=== PATIENT | female | born 1970 | race Caucasian/White ===

== ENCOUNTER 2016-11-23 18:07 | Emergency (ER) | payer OTHER ==
[~2016-11-23] VITALS: Ht 170.2 cm; Wt 70.3 kg
[2016-11-23 19:26] LABS: BASOPHILS % (AUTO) 0 % (0-10); EOSINOPHILS # (AUTO) 0.1 10^3/uL (0.0-0.3); EOSINOPHILS % (AUTO) 2 % (0-10); LYMPHOCYTES # (AUTO) 2.2 X 10^3 (1.0-4.0); LYMPHOCYTES % (AUTO) 32 % (12-44); MEAN CORPUSCULAR HEMOGLOBIN 31 PG (25-34); MEAN CORPUSCULAR HGB CONC 34 G/DL (32-36); MEAN CORPUSCULAR VOLUME 92 FL (80-99); MONOCYTES # (AUTO) 0.6 X 10^3 (0.0-1.0); MONOCYTES % (AUTO) 9 % (0-12); NEUTROPHILS % (AUTO) 57 % (42-75); PLATELET COUNT 276 10^3/uL (130-400); RED BLOOD COUNT 4.43 10^6/uL (4.35-5.85); RED CELL DISTRIBUTION WIDTH 12.8 % (10.0-14.5)
[2016-11-23 19:47] LABS: ALANINE AMINOTRANSFERASE 20 U/L (0-55); ALBUMIN 4.1 GM/DL (3.2-4.5); ANION GAP 8 MMOL/L (5-14); ASPARTATE AMINO TRANSFERASE 19 U/L (5-34); BILIRUBIN,TOTAL 0.6 MG/DL (0.1-1.0); BLOOD UREA NITROGEN 9 MG/DL (7-18); BUN/CREATININE RATIO 12; CALCIUM 9.1 MG/DL (8.5-10.1); CARBON DIOXIDE 24 MMOL/L (21-32); CHLORIDE 106 MMOL/L (98-107); CREATININE SERUM 0.74 MG/DL (0.60-1.30); GFR ESTIMATED > 60; GLUCOSE 89 MG/DL (70-105); MAGNESIUM 2.3 MG/DL (1.8-2.4); POTASSIUM 3.6 MMOL/L (3.6-5.0); SODIUM 138 MMOL/L (135-145); TOTAL PROTEIN 7.6 GM/DL (6.4-8.2)
--- NOTE | 2016-11-23 19:58 | Diagnostic Imaging Report ---
CLINICAL INDICATION: Patient complains of premature ventricular contractions for the past four years. EXAM: Chest x-ray, PA and lateral views. COMPARISONS: None. FINDINGS: Lungs/pleura: Lungs are clear. There is no pneumothorax. There is no pleural effusion. Mediastinum: Unremarkable. Pulmonary vasculature: Unremarkable. Heart: Unremarkable. Bones/extrathoracic soft tissue: Unremarkable. IMPRESSION: Unremarkable chest x-ray exam with no radiographic evidence of acute cardiopulmonary process. Dictated by: Dictated on workstation # [id number]
[2016-11-23 20:06] LABS: THYROID STIMULATING HORMONE 2.58 UIU/ML (0.35-4.94); TROPONIN I < 0.30 NG/ML (<0.30)
--- NOTE | 2016-11-23 20:36 | ED Cardiac General ---
History of Present Illness General Chief Complaint: Cardiac/General Problems Stated Complaint: PBC Nursing Triage Note: c/o intermittant pvc's x2 weeks History of Present Illness Time seen by provider: 19:00 Initial Comments Patient reports over the last 2 weeks she's been having palpitations. She was evaluated in [place] where she works and seen at a clinic. She wore a Holter monitor for the last 24 hours, it was turned to the hospital earlier today. She has had no report on the results from that. She reports that the palpitations are intermittent she will go many hours without having any and then have them for 5-10 minutes before they resolve. She denies any added stress or other life circumstances that may be the cause. She does have a strong family history of cardiovascular disease including a father that had a fatal IL in the early 50s. Timing/Duration: other Severity: mild Location: substernal (palpitations) Activities at Onset: other (very) Prior CP/Workup: no prior chest pain, no prior cardiac workup NTG SL QUALITY CONTROL SCIENTIST: No ASA po QUALITY CONTROL SCIENTIST: Yes (she began taking aspirin 81 mg 1 by mouth daily this week.) Associated Systoms: Denies Symptoms Allergies and Home Medications Allergies Coded Allergies: No Known Drug Allergies (Unverified , 11/23/16) Home Medications No Active Prescriptions or Reported Meds Review of Systems Constitutional: no symptoms reported, see HPI Cardiovascular: See HPI, Irregular Heart Rate, Palpitations All Other Systems Reviewed Negative Unless Noted: Yes Past Qanwcio-Nwzmxb-Pbtlct Hx Patient Social History Alcohol Use: Denies Use Recreational Drug Use: No Smoking Status: Never a Smoker 2nd Hand Smoke Exposure: No Recent Foreign Travel: No Contact w/Someone Who Travel: No Recent Infectious Disease Expo: No Recent Hopitalizations: No Immunizations Up To Date Tetanus Booster (TDap): Less than 5yrs PED Vaccines UTD: Yes Seasonal Allergies Seasonal Allergies: No Surgeries History of Surgeries: Yes Surgeries: Hysterectomy Respiratory History of Respiratory Disorde: No Cardiovascular History of Cardiac Disorders: No Neurological History of Neurological Disord: No Reproductive System : No CARD DEALER History: Hysterectomy Genitourinary History of Genitourinary Disor: No Gastrointestinal History of Gastrointestinal Di: No Musculoskeletal History of Musculoskeletal Dis: No Endocrine History of Endocrine Disorders: No HEENT History of HEENT Disorders: No Cancer History of Cancer: No Psychosocial History of Psychiatric Problem: No Integumentary History of Skin or Integumenta: No Blood Transfusions History of Blood Disorders: No Reviewed Nursing Assessment Reviewed/Agree w Nursing PMH: Yes Physical Exam Vital Signs Vital Sign - Last 12Hours 11/23/16 19:09 Temp 97.7 Pulse 68 Resp 23 B/P (MAP) 156/98 Pulse Ox 99 O2 Delivery Room Air Capillary Refill : Less Than 3 Seconds General Appearance: No Apparent Distress, WD/WN HEENT: PERRL/EOMI, TMs Normal, Normal ENT Inspection, Pharynx Normal Neck: Full Range of Motion, Normal Inspection, Non Tender, Supple Respiratory: Chest Non Tender, Lungs Clear, Normal Breath Sounds Cardiovascular: Regular Rate, Rhythm, No Edema, No Murmur, Normal Peripheral Pulses Gastrointestinal: Normal Bowel Sounds, No Organomegaly, No Pulsatile Mass, Non Tender, Soft Neurologic/Psychiatric: Alert, Oriented x3, No Motor/Sensory Deficits, Normal Mood/Affect Skin: Normal Color, Warm/Dry Lymphatic: No Adenopathy Progress/Results/Core Measures Results/Orders Lab Results Laboratory Tests Test 11/23/16 19:15 Range/Units White Blood Count 7.0 4.3-11.0 10^3/uL Red Blood Count 4.43 4.35-5.85 10^6/uL Hemoglobin 13.9 11.5-16.0 G/DL Hematocrit 41 35-52 % Mean Corpuscular Volume 92 80-99 FL Mean Corpuscular Hemoglobin 31 25-34 PG Mean Corpuscular Hemoglobin Concent 34 32-36 G/DL Red Cell Distribution Width 12.8 10.0-14.5 % Platelet Count 276 130-400 10^3/uL Mean Platelet Volume 10.0 7.4-10.4 FL Neutrophils (%) (Auto) 57 42-75 % Lymphocytes (%) (Auto) 32 12-44 % Monocytes (%) (Auto) 9 0-12 % Eosinophils (%) (Auto) 2 0-10 % Basophils (%) (Auto) 0 0-10 % Neutrophils # (Auto) 4.0 1.8-7.8 X 10^3 Lymphocytes # (Auto) 2.2 1.0-4.0 X 10^3 Monocytes # (Auto) 0.6 0.0-1.0 X 10^3 Eosinophils # (Auto) 0.1 0.0-0.3 10^3/uL Basophils # (Auto) 0.0 0.0-0.1 10^3/uL Sodium Level 138 135-145 MMOL/L Potassium Level 3.6 3.6-5.0 MMOL/L Chloride Level 106 98-107 MMOL/L Carbon Dioxide Level 24 21-32 MMOL/L Anion Gap 8 5-14 MMOL/L Blood Urea Nitrogen 9 7-18 MG/DL Creatinine 0.74 0.60-1.30 MG/DL Estimat Glomerular Filtration Rate > 60 BUN/Creatinine Ratio 12 Glucose Level 89 70-105 MG/DL Calcium Level 9.1 8.5-10.1 MG/DL Magnesium Level 2.3 1.8-2.4 MG/DL Total Bilirubin 0.6 0.1-1.0 MG/DL Aspartate Amino Transf (AST/SGOT) 19 5-34 U/L Alanine Aminotransferase (ALT/SGPT) 20 0-55 U/L Alkaline Phosphatase 62 40-136 U/L Troponin I < 0.30 <0.30 NG/ML Total Protein 7.6 6.4-8.2 GM/DL Albumin 4.1 3.2-4.5 GM/DL Thyroid Stimulating Hormone (TSH) 2.58 0.35-4.94 UIU/ML My Orders Orders - NADIA SANTORO Chest Pa/Lat (2 View) (11/23/16 19:38) Vital Signs/I&O Vital Sign - Last 12Hours 11/23/16 11/23/16 19:09 20:44 Temp 97.7 97.0 Pulse 68 61 Resp 23 10 B/P (MAP) 156/98 Pulse Ox 99 100 O2 Delivery Room Air Room Air Blood Pressure Mean: 117 Progress Note : Time: 19:00 Progress Note Initial evaluation completed, recommended labs, chest x-ray and EKG. Will reevaluate and continue cardiac monitoring. 1940 all studies essentially normal. The patient has had a few episodes of palpitations since admission to the emergency department, they do seem to coincide with the PVCs. 2000 discussed at length with the patient and her daughter to follow-up at the clinic with a Holter monitor was done for reevaluation and referral to cardiology. Warning signs to return to the emergency Department were reviewed with her and she verbalized understanding. ECG Initial ECG Impression Date: Nov 23, 2016 Initial ECG Impression Time: 19:38 Initial ECG Rate: 58 Initial ECG Rhythm: Normal Sinus Initial ECG Intervals CT 160, QRS D 86, QT 396, QTc 389. [place] P 52, QRS 46, T 30. Initial ECG Impression: Normal Diagnostic Imaging Diagonstic Imaging: Xray Plain Films/CT/US/NM/MRI: chest Comments NAME: JAY LEBRON [facility] REC#: [id number] PT STATUS: REG ER : 1970 PHYSICIAN: NADIA SANTORO ADMIT DATE: 11/23/16/ER Draft Date of Exam:11/23/16 CHEST PA/LAT (2 VIEW) CLINICAL INDICATION: Patient complains of premature ventricular contractions for the past four years. EXAM: Chest x-ray, PA and lateral views. COMPARISONS: None. FINDINGS: Lungs/pleura: Lungs are clear. There is no pneumothorax. There is no pleural effusion. Mediastinum: Unremarkable. Pulmonary vasculature: Unremarkable. Heart: Unremarkable. Bones/extrathoracic soft tissue: Unremarkable. IMPRESSION: Unremarkable chest x-ray exam with no radiographic evidence of acute cardiopulmonary process. Dictated on workstation # [id number] Dict: 11/23/161953 Trans: 11/23/161956 [id number] Interpreted by: NOLA CASPER MD Electronically signed by: Departure Impression Impression: Primary Impression: Palpitations Additional Impression: PVCs (premature ventricular contractions) Disposition: 01 HOME, SELF-CARE Condition: Stable Departure-Patient Inst. Decision time for Depature: 20:30 Referrals: NO,LOCAL PHYSICIAN (PCP/Family) Primary Care Physician Patient Instructions: Palpitations (DC) Add. Discharge Instructions: Continue taking aspirin one daily, 81 mg. Call [facility] tomorrow for results of your Holter monitor, as the clinic to schedule with you with cardiology. ([place] [facility] or [place]) Return to emergency department if palpitations change in nature or increase in frequency or duration, chest pain, left arm pain, numbness or tingling, or new problems. All discharge instructions reviewed with patient and/or family. Voiced understanding. Scripts No Active Prescriptions or Reported Meds Copy Copies To 1: JUDY RWIGHT MD, AMY ARNP Nov 23, 2016 20:36
[2016-11-23 20:44] VITALS: BP 135/80
== END 2016-11-23 20:44 | disposition home or self-care (01) ==
LOC: ER 18:11
DX: I49.3 Ventricular premature depolarization (principal); Z90.710 Acquired absence of both cervix and uterus; Z82.49 Family history of ischemic heart disease and other diseases of the circulatory system
CPT/HCPCS: 36415; 71020; 80053; 83735; 84443; 84484; 85025; 93005; 93041

== ENCOUNTER 2017-01-08 11:00 | Outpatient (RCR) | payer OTHER ==
[~2017-01-08 11:00] MED LIST: ASPI-586 PO; CHOL10007 PO; OMEG1000 PO
== END 2017-03-11 | disposition home or self-care (01) ==
LOC: CARD 11:00
PROVIDERS: ATTEND Internal Medicine Interventional Cardiology
DX: R00.2 Palpitations (principal); I45.9 Conduction disorder, unspecified
CPT/HCPCS: 93270

== ENCOUNTER → 2019-12-03 | Outpatient (CLI) | payer OTHER | LOC: ONC 14:57 | PROVIDERS: ATTEND Nurse Practitioner Adult Health | DX: Z13.79 Encounter for other screening for genetic and chromosomal anomalies (principal); Z80.3 Family history of malignant neoplasm of breast; Z79.899 Other long term (current) drug therapy; R00.0 Tachycardia, unspecified; R00.2 Palpitations | CPT/HCPCS: 99212 ==

== ENCOUNTER → 2020-01-05 | Outpatient (CLI) | payer OTHER ==
[2020-01-05 12:06] VITALS: BP 107/75
--- NOTE | 2020-01-05 12:06 | Cardiology Stress Test Report ---
Stress Test Report Date of Procedure/Referring: Date of Procedure: Jan 05, 2020 PCP Judy Delgado MD Admitting Physician [facility] Indications: Palpitation Baseline Heart Rate: 61 Baseline Blood Pressure: Blood Pressure Systolic: 107 Blood Pressure Diastolic: 75 Baseline EKG: Baseline EKG: normal sinus rhythm Summary/Conclusion: Summary: In summary, the patient started exercising with a baseline heart rate, blood pressure and EKG mentioned above Patient was able to exercise for a total of 5minutes on Nj protocol, METs 7 Maximum heart rate 159 Maximum blood pressure 150/86 Stress EKG, Minimal nondiagnostic changes Recovery EKG , Return to baseline Conclusion: 1. Good exercise tolerance for a total of minutes on Nj protocol, METs, achieving percent of maximum expected heart rate 2. Minimal nondiagnostic EKG changes with exercise returned to baseline during recovery 3. Multiple PVCs noted during exercise and during recovery, transient episode of ventricular trigeminy noted during recovery JUDY DELGADO MD Jan 05, 2020 12:06 pm
== END ==
LOC: CARD 09:39
PROVIDERS: ATTEND Internal Medicine Cardiovascular Disease
DX: I49.1 Atrial premature depolarization (principal); I49.3 Ventricular premature depolarization; I45.9 Conduction disorder, unspecified; Z80.3 Family history of malignant neoplasm of breast
CPT/HCPCS: 93017; 93306

== ENCOUNTER 2020-02-05 05:35 | Outpatient (RCR) | payer OTHER ==
[~2020-02-05] VITALS: Ht 170.2 cm; Wt 74.1 kg
== END 2020-02-05 11:08 | disposition home or self-care (01) ==
LOC: PREOP 05:35
PROVIDERS: ATTEND Surgery
DX: Z01.812 Encounter for preprocedural laboratory examination (principal); K21.9 Gastro-esophageal reflux disease without esophagitis; Z20.828 Contact with and (suspected) exposure to other viral communicable diseases
CPT/HCPCS: 87635

== ENCOUNTER 2020-02-10 08:04 | Day surgery (SDC) | payer OTHER ==
[~2020-02-10] VITALS: Ht 170.2 cm; Wt 74.1 kg
[2020-02-10] VITALS (7 sets, daily range): BP systolic 100–154; BP diastolic 64–87
[2020-02-10] MEDS ORDERED: LACTATED RINGERS 1,000 ML IV STA (08:15)
[2020-02-10] MEDS ORDERED: HURRICAINE EXT TUBE (BENZOCAINE) XX PRN (08:15)
[2020-02-10] MEDS ORDERED: PROPOFOL INJECTION 50 ML IV ONE (08:16)
[2020-02-10] MEDS ORDERED: LACTATED RINGERS 1,000 ML IV ONE (08:16)
[2020-02-10] MEDS ORDERED: MIDAZOLAM 2 MG/2 ML (VERSED) VIAL ONE (08:17)
--- NOTE | 2020-02-10 08:29 | Progress Note-Pre Operative ---
Pre-Operative Progress Note H&P Reviewed The H&P was reviewed, patient examined and no changes noted. Date Seen by Provider: Feb 10, 2020 Time Seen by Provider: 08:29 Date H&P Reviewed: Feb 10, 2020 Time H&P Reviewed: 08:29 Pre-Operative Diagnosis: gerd, screening colonoscopy IGLESIA CANO DO Feb 10, 2020 08:29
[2020-02-10] MEDS ORDERED: HURRICAINE EXT TUBE (BENZOCAINE) ONE (08:59)
--- NOTE | 2020-02-10 09:46 | Discharge Inst-Simple/Standard ---
Discharge Inst-Standard Discharge Medications New, Converted or Re-Newed RX: Transmitted to Pharmacy Patient Instructions/Follow Up Plan of Care/Instructions/FU: 3 weeks Anitha Activity as Tolerated: Yes Discharge Diet: Regular Diet IGLESIA CANO DO Feb 10, 2020 09:46
--- NOTE | 2020-02-10 09:46 | Progress Note-Post Operative ---
Post-Operative Progess Note Surgeon (s)/Tool Sharpener (s) Surgeon IGLESIA CANO DO Tool Sharpener: na Pre-Operative Diagnosis gerd, screening colonoscopy Post-Operative Diagnosis reflux esophagitis, normal colon Procedure & Operative Findings Date of Procedure 02/10/20 Procedure Performed/Findings egd c biopsies colonoscopy Anesthesia Type per marketing editor Estimated Blood Loss Estimated blood loss (mL): na Specimens/Packing Specimens Removed antrum ge IGLESIA CANO DO Feb 10, 2020 09:46
[2020-02-10] MEDS ORDERED: OMEP-401 PO (09:50)
--- NOTE | 2020-02-10 12:28 | OPERATIVE REPORT ---
DATE OF SERVICE: 02/10/2020 PREOPERATIVE DIAGNOSES: Gastroesophageal reflux disease and screening colonoscopy. POSTOPERATIVE DIAGNOSES: Reflux esophagitis, normal colon. PROCEDURE: EGD with biopsies, colonoscopy. SURGEON: Iglesia Welsh DO ANESTHESIA: Per PROTECTION AGENT. ESTIMATED BLOOD LOSS: None. COMPLICATIONS: None. INDICATIONS: The patient is a 49-year-old female needing screening colonoscopy and has reflux. She understands risks and benefits of procedure and wished to proceed with procedure. Consent was signed in the chart. DESCRIPTION OF PROCEDURE: The patient was taken to the endoscopy suite, placed in left lateral recumbent position. Timeout was performed. Scope was inserted in mouth, down the esophagus, stomach and into the duodenum without difficulty. There were no polyps, masses or ulcerations in the duodenum. Scope was slowly retracted back into the stomach where it was further insufflated. No polyps, masses or ulcerations. Biopsy of the antrum was obtained. Some minimal erythematous changes. Scope was retroflexed noting no other pathology. Scope was returned to its normal position, slowly withdrawn to distal esophagus, changes of reflux esophagitis present. Biopsy of the GE junction was obtained. Scope was then slowly retracted back noting no other pathology. The patient tolerated procedure well. Digital rectal exam was performed. No palpable polyps, masses or ulcerations. Scope was inserted in the rectum, advanced all the way to cecum with minimal difficulty. Prep was adequate. There were no polyps, mass, ulceration of the cecum, ascending, transverse, descending and sigmoid colon. Once in the rectum, scope was retroflexed noting no other pathology. Scope was returned to its normal position, slowly withdrawn until completely removed. The patient tolerated procedure well without any complications. She was taken to recovery room in stable condition. RECOMMENDATIONS: The patient will need repeat colonoscopy in 10 years unless family history of colon cancer, which then be 5 years. Any issues before that be seen at that time. The patient with reflux esophagitis, but was started on omeprazole 20 mg daily. We will follow up on biopsies. Further recommendations pending biopsy and symptoms. Job ID: [id number] DocumentID: [id number] Dictated Date: 02/10/2020 09:53:17 Community Service Technician Date: 02/10/2020 12:27:22 Dictated By: IGLESIA WELSH DO
--- NOTE | 2020-02-10 13:13 | Anesthesia-General Post-Op ---
MAC Patient Condition Mental Status/LOC: Same as Preop Cardiovascular: Satisfactory Nausea/Vomiting: Absent Respiratory: Satisfactory Pain: Controlled Complications: Absent Post Op Complications Complications None Follow Up Care/Instructions Patient Instructions None needed. Anesthesiology Discharge Order Discharge Order Patient is doing well, no complaints, stable vital signs, no apparent adverse anesthesia problems. No complications reported per nursing. GET HUTTON CRNA Feb 10, 2020 13:13
== END 2020-02-10 10:28 | disposition home or self-care (01) ==
LOC: ENDO 08:04
PROVIDERS: ATTEND Surgery
DX: Z12.11 Encounter for screening for malignant neoplasm of colon (principal); K21.00 Gastro-esophageal reflux disease with esophagitis, without bleeding; Z83.3 Family history of diabetes mellitus; Z90.710 Acquired absence of both cervix and uterus
CPT/HCPCS: 88305

== ENCOUNTER → 2020-02-26 | Outpatient (CLI) | payer OTHER ==
[~2020-02-26] MED LIST changes: +OMEP-401 PO
--- NOTE | 2020-02-26 08:39 | Diagnostic Imaging Report ---
PROCEDURE: US Gallbladder. TECHNIQUE: Multiple real-time grayscale images were obtained over the right upper quadrant in various projections. INDICATION: Epigastric pain. FINDINGS: The liver is normal in size at 15 cm. No discrete liver mass is detected. Portal vein is patent and shows normal direction of flow. Gallbladder is without stones or sludge. No wall thickening or biliary ductal dilatation is identified. Pancreas is unremarkable. Aorta is nonaneurysmal. IVC is patent. Right kidney is without calculi or hydronephrosis. There is no ascites. IMPRESSION: Unremarkable gallbladder ultrasound. Dictated by: Dictated on workstation # [id number]
== END ==
LOC: RAD 08:00
PROVIDERS: ATTEND Surgery
DX: R10.13 Epigastric pain (principal)
CPT/HCPCS: 76705

== ENCOUNTER → 2020-03-22 | Outpatient (CLI) | payer OTHER ==
--- NOTE | 2020-03-22 12:28 | Diagnostic Imaging Report ---
INDICATION: Epigastric pain. TECHNIQUE: The patient received 5.4 mCi of intravenous technetium 99M Choletec. After 60 minutes, gallbladder stimulation was performed with the patient's ingestion of the one can of Ensure with additional imaging performed. FINDINGS: There is prompt homogenous distribution of radiopharmacy throughout the liver parenchyma. Activity can be seen within the intra and extrahepatic bile ducts as well as accumulating within the gallbladder within 15 minutes time. With gallbladder stimulation, an ejection fraction of 40% is within normal limits given oral stimulation. IMPRESSION: Normal HIDA scan and unremarkable gallbladder ejection fraction. Dictated by: Dictated on workstation # [id number]
== END ==
LOC: CARD 10:00
PROVIDERS: ATTEND Surgery
DX: R10.13 Epigastric pain (principal)
CPT/HCPCS: 78227; A9537

== ENCOUNTER 2020-04-06 05:30 | Outpatient (RCR) | payer OTHER ==
[~2020-04-06] VITALS: Ht 170.2 cm; Wt 70.9 kg
[~2020-04-06 05:30] MED LIST changes: +ASCO100T6 PO; +CHOL500049 PO; +OMEG1600 PO; +ROSU20TA2 PO
== END 2020-04-06 10:58 | disposition home or self-care (01) ==
LOC: PREOP 05:30
PROVIDERS: ATTEND Surgery
DX: Z01.812 Encounter for preprocedural laboratory examination (principal); K82.8 Other specified diseases of gallbladder; Z20.822 Contact with and (suspected) exposure to COVID-19
CPT/HCPCS: 87635

== ENCOUNTER 2020-04-08 07:55 | Day surgery (SDC) | payer OTHER ==
[~2020-04-08] VITALS: Ht 170.2 cm; Wt 70.9 kg
[2020-04-08] VITALS (11 sets, daily range): BP systolic 109–138; BP diastolic 71–83
[2020-04-08] MEDS ORDERED: LIDOCAINE/EPI 1%-1:100,000 (XYLOCAINE) 50 ML ONE (07:56)
[2020-04-08] MEDS ORDERED: IOPAMIDOL 61% 30 ML (ISOVUE 300) VIAL ONE (07:56)
--- NOTE | 2020-04-08 08:06 | Progress Note-Pre Operative ---
Pre-Operative Progress Note H&P Reviewed The H&P was reviewed, patient examined and no changes noted. Date Seen by Provider: Apr 08, 2020 Time Seen by Provider: 08:06 Date H&P Reviewed: Apr 08, 2020 Time H&P Reviewed: 08:06 Pre-Operative Diagnosis: epigastric abd pain, biliary dyskinesia IGLESIA CANO DO Apr 08, 2020 08:06
[2020-04-08] MEDS ORDERED: ceFAZolin INJECTION 1,000 MG in WATER (STERILE) FOR INJECTION 10 ML IV ONE (08:15)
[2020-04-08] MEDS ORDERED: CATHETER FLUSH 10 ML SYR IV PRN (08:15)
[2020-04-08] MEDS ORDERED: LIDOCAINE PF 2% 5 ML (XYLOCAINE) VIAL ONE (08:20)
[2020-04-08] MEDS ORDERED: ROCURONIUM 10 MG/ML 5 ML SYRINGE IV ONE (08:20)
[2020-04-08] MEDS ORDERED: proPOfol 200 MG/20 ML (DIPRIVAN) VIAL IV ONE (08:20)
[2020-04-08] MEDS ORDERED: ONDANSETRON 4 MG/2 ML (SDV) Z0FRAN ONE (08:20)
[2020-04-08] MEDS ORDERED: MIDAZOLAM 2 MG/2 ML (VERSED) VIAL ONE (08:20)
[2020-04-08] MEDS ORDERED: fentaNYL INJECTION 100 MCG/2 ML AMP ONE ×2 (08:20→09:56)
[2020-04-08] MEDS ORDERED: NEOSTIGMINE 3 MG/3 ML VIAL ONE (08:21)
[2020-04-08] MEDS ORDERED: GLYCOPYRROLATE 0.2 MG/ML (ROBINUL) 2 ML VIAL ONE (08:21)
[2020-04-08] MEDS ORDERED: SEVOFLURANE (ULTANE) 15 ML INHAL SOLN ONE ×3 (08:21→10:15)
[2020-04-08] MEDS: LACTATED RINGERS 1,000 ML IV PRN ×2 (08:25→09:59)
--- NOTE | 2020-04-08 10:25 | Progress Note-Post Operative ---
Post-Operative Progess Note Surgeon (s)/Seam Checker (s) Surgeon IGLESIA CANO DO Seam Checker: Dr. Villegas to assist in retraction dissection and closure. Pre-Operative Diagnosis epigastric abd pain, biliary dyskinesia Post-Operative Diagnosis same Procedure & Operative Findings Date of Procedure 04/08/20 Procedure Performed/Findings PROCEDURE: Laparoscopic cholecystectomy with intraoperative cholangiogram. COMPLICATIONS: None. PROCEDURE: The patient was taken to the operating suite and was prepped and draped in sterile fashion. A surgical pause was performed. Just superior to the umbilicus, a 12 mm incision was made. Dissection was taken down to the fascia, which was then scored and grasped with a Stevo and the abdomen was then entered. A 0 Vicryl suture was placed in a [id number]-zx-mfdva fashion and a Grant trocar was placed and secured. Pneumoperitoneum was achieved. A 5mm trochar place in the subxyphoid and 2 in the right upper quadrant. The gallbladder was then grasped and elevated. The cystic duct, and cystic artery were then dissected out. Clip was placed on the distal portion of the cystic duct which was then partially transected. An arrow catheter was inserted into the duct. The cholangiogram was then performed. No filing defects and contrast made its way into the duodenum. Catheter removed. Clips were placed on proximal portion of the cystic duct and then the duct was then transected. Clips were placed along the proximal and distal portion of the cystic artery which was then transected. Hook cautery was used to dissect the gallbladder from the gallbladder fossa achieving hemostasis. The gallbladder was placed in an Endobag and removed through the 12 mm trocar site. The abdomen was then reinspected. Copious amounts of irrigation were used to irrigate the abdomen and there were no signs of active bleeding. Hemostasis had been achieved. The 12 mm fascial defect was then closed with 0 Vicryl suture that had been placed in a juwnos-yx-izaca fashion. The abdomen was then desufflated, the trocars were removed. The abdomen was then washed and dried. The skin was then closed using 4-0 Monocryl in a subcuticular fashion. The abdomen was washed and dried and Skin Affix was place over incisions. Patient tolerated the procedure well without any complications and was taken to the recovery room in stable condition. Anesthesia Type general Estimated Blood Loss Estimated blood loss (mL): minimal Specimens/Packing Specimens Removed gallbladder IGLESIA CANO DO Apr 08, 2020 10:25
[2020-04-08] MEDS ORDERED: ACHD5005 PO (10:26)
[2020-04-08] MEDS ORDERED: DOCU-143 PO (10:26)
--- NOTE | 2020-04-08 10:27 | Discharge Inst-Simple/Standard ---
Discharge Inst-Standard Discharge Medications New, Converted or Re-Newed RX: RX on Chart Patient Instructions/Follow Up Plan of Care/Instructions/FU: 2-3 weeks Anitha Activity as Tolerated: No Discharge Diet: Regular Diet Other Inst to Patient Follow up Appt: Make appointment for 2 weeks. Instructions: No lifting greater than 10 pounds. No strenuous activity. May shower in 24 hours, no tub bath or soaking. Use incentive spirometer at home as directed. No Smoking Skin/Wound Care: You have special glue over incision, it will fall off on it's own. Symptoms to Report: Appetite Changes, Extremity Discoloration, Numbness/Tingling, Swelling Increased, Bleeding Excessive, Eyesight Changes, Pain Increased, Urine Color Change, Constipation(Persistent), Fever over 101 degree F, Pain/Pressure in ch est, Urinating Difficulty, Cough Up/Vomit Blood, Heart Beat Irreg/Pounding, Pain/Pressure in jaw, Vaginal Bleeding Increase, Cramps in feet or legs, Lightheadedness, Pain/Pressure in shoulder, Diarrhea(Persistent), Memory Changes Suddenly, Questions/Concerns, Weight gain consecutive days, Dizziness/Fainting, Nausea/Vomiting, Shortness of Breath, Weight gain over 2 pounds. If eyes or skin turn yellow notify physician. If questions or concerns contact your physician Or seek help at emergency department. IGLESIA CANO DO Apr 08, 2020 10:27
[2020-04-08] MEDS ORDERED: ONDANSETRON 4 MG/2 ML (SDV) Z0FRAN IVP PRN (10:45)
[2020-04-08] MEDS ORDERED: fentaNYL INJECTION 100 MCG/2 ML AMP IVP ONE (10:45)
[2020-04-08] MEDS ORDERED: MEPERIDINE (DEMEROL) INJ 50 MG/ML IVP ONE (10:45)
[2020-04-08] MEDS ORDERED: morphine INJ 10 MG/ML 1ML (SYR OR VIAL) IVP ONE (10:45)
--- NOTE | 2020-04-08 12:40 | Anesthesia-General Post-Op ---
General Patient Condition Mental Status/LOC: Same as Preop Cardiovascular: Satisfactory Nausea/Vomiting: Absent Respiratory: Satisfactory Pain: Controlled Complications: Absent Post Op Complications Complications None Follow Up Care/Instructions Patient Instructions None needed. Anesthesia/Patient Condition Patient Condition Patient is doing well, no complaints, stable vital signs, no apparent adverse anesthesia problems. No complications reported per nursing. GET HUTTON CRNA Apr 08, 2020 12:40
--- NOTE | 2020-04-08 15:44 | Diagnostic Imaging Report ---
INDICATION: Fluoroscopy for intraoperative cholangiogram. Fluoroscopy was provided in the OR during intraoperative cholangiogram. 16 seconds of fluoroscopic time was utilized. Images demonstrate contrast being injected via the cystic duct remnant. Contrast is seen with a normal caliber intrahepatic and extrahepatic bile duct. No filling defects are seen. Contrast passes into the duodenum. IMPRESSION: Fluoroscopy during intraoperative cholangiogram. Dictated by: Dictated on workstation # [id number]
== END 2020-04-08 12:35 | disposition home or self-care (01) ==
LOC: SDC 07:55
PROVIDERS: ATTEND Surgery
DX: K81.1 Chronic cholecystitis (principal); K82.8 Other specified diseases of gallbladder; K21.9 Gastro-esophageal reflux disease without esophagitis; Z79.899 Other long term (current) drug therapy; Z90.710 Acquired absence of both cervix and uterus
CPT/HCPCS: 76000; 87081; 88304